=== PATIENT | female | born 1980 | race Caucasian/White ===

== ENCOUNTER → 2019-05-03 | Outpatient (CLI) | payer BC ==
[2019-05-03 11:26] LABS: FOLLICLE STIMULATING HORMONE 8.7 mIU/mL; HCG, SERUM QUANTITATIVE < 1.0 MIU/ML; LUTEINIZING HORMONE 5.5 mIU/mL; PROGESTERONE 0.81 NG/ML
--- NOTE | 2019-05-03 11:45 | REP ---
Pelvic sonography: History: Ovarian dysfunction. Follicle study. Findings: Uterine dimensions are 8.7 x 3.7 x 5.1 cm. Endometrial echo is 1.1 cm thick. Endometrial echo is complex with some fluid in the fundal endometrium. Question endometrial polyp. No free fluid in the cul-de-sac. The right ovary's dimensions are 3.0 x 2.1 x 2.1 cm. There are two follicles in the right ovary measuring greater than a centimeter as follows: 1.6 x 1.4 and 1.1 x 1.0 cm. In addition, there are three follicles in the right ovary between 0.6 and 0.8 cm in greatest diameter. The overall dimensions of the left ovary are 3.5 x 1.7 x 1.8 cm. There are two follicles in the left ovary greater than a centimeter measured as follows: 1.2 x 1.1 and 1.3 x 1.2 cm. In addition, there are five follicles in the left ovary ranging in size from 0.5 to 0.7 cm. Doppler flow is normal both ovaries. Resistive indices are 0.58 on the right and 0.69 on the left. Impression: Ovarian follicle study as above. Complex somewhat nodular endometrial echo question endometrial polyp. Electronically Signed by Harvey Cooley MD 05/03/2019 01:00 P
== END ==
LOC: M RAD 08:36
PROVIDERS: ATTEND Obstetrics & Gynecology Reproductive Endocrinology
DX: N97.9 Female infertility, unspecified (principal)

== ENCOUNTER → 2019-05-08 | Outpatient (CLI) | payer BC ==
--- NOTE | 2019-05-08 10:03 | REP ---
TRANSVAGINAL PELVIC ULTRASOUND FOLLICLE STUDY: Real-time sonographic evaluation of the pelvis was performed utilizing transvaginal technique. The uterus measures 8.9 x 3.5 x 4.8 cm. Endometrial thickness is 9 mm. The right ovary measures 4.0 x 2.7 x 3.8 cm. Four dominant follicles are seen greater than 1 cm in maximum diameter. The largest measures 13 x 15 mm. There are a few other subcentimeter follicles seen in the right ovary. The left ovary measures 4.0 x 3.4 x 2.9 cm. There are four dominant follicles seen which are greater than 1 cm in diameter. The largest is 20 x 16 mm. There are a couple of other subcentimeter follicles. Electronically Signed by Camilo Vega MD 05/08/2019 11:26 P
[2019-05-08 11:09] LABS: ESTRADIOL 576.4 PG/ML; LUTEINIZING HORMONE 14.2 mIU/mL; PROGESTERONE 1.32 NG/ML
== END ==
LOC: M RAD 09:06
PROVIDERS: ATTEND Obstetrics & Gynecology Reproductive Endocrinology
DX: E28.9 Ovarian dysfunction, unspecified (principal)

== ENCOUNTER → 2019-05-10 | Outpatient (CLI) | payer BC ==
--- NOTE | 2019-05-10 10:29 | REP ---
TRANSVAGINAL PELVIC ULTRASOUND FOLLICLE STUDY: Transvaginal pelvic ultrasound performed. Uterus measures 8.6 x 3.9 x 4.7 cm. Endometrial thickness is 10.0 mm. Nabothian cyst is seen in the region of the cervix. There is no free fluid. Right ovary measures 5.1 x 3.3 x 4.4 cm. There are 10 dominant follicles greater than 1 cm in maximum diameter. The largest measures 18.0 x 16.0 mm. Several subcentimeter follicles are also seen in the right ovary. Left ovary measures 3.8 x 2.8 x 3.4 cm. There are approximately 16 follicles 1 cm or greater within the left ovary. Largest measures 23.0 x 17.0 mm. There are a few other subcentimeter follicles in the left ovary. Electronically Signed by Camilo Vega MD 05/10/2019 06:21 P
[2019-05-10 10:46] LABS: LUTEINIZING HORMONE 2.1 mIU/mL; PROGESTERONE 1.73 NG/ML
== END ==
LOC: M RAD 08:58
PROVIDERS: ATTEND Obstetrics & Gynecology Reproductive Endocrinology
DX: N97.9 Female infertility, unspecified (principal)

== ENCOUNTER → 2019-05-23 | Outpatient (CLI) | payer BC ==
[2019-05-23 10:43] LABS: THYROID STIMULATING HORMONE 1.83 uIU/ML (0.358-3.740)
[2019-05-23 10:45] LABS: PROGESTERONE 47.79 NG/ML
[2019-05-23 10:46] LABS: ESTRADIOL 200.8 PG/ML
== END ==
LOC: M LAB 09:15
PROVIDERS: ATTEND Obstetrics & Gynecology Reproductive Endocrinology
DX: E28.9 Ovarian dysfunction, unspecified (principal)

== ENCOUNTER → 2019-05-29 | Outpatient (CLI) | payer BC ==
[2019-05-29 12:44] LABS: PROGESTERONE 82.04 NG/ML
== END ==
LOC: M LAB 09:05
PROVIDERS: ATTEND Obstetrics & Gynecology Reproductive Endocrinology
DX: E28.9 Ovarian dysfunction, unspecified (principal)

== ENCOUNTER → 2019-05-31 | Outpatient (CLI) | payer BC ==
[2019-05-31 10:33] LABS: THYROID STIMULATING HORMONE 1.54 uIU/ML (0.358-3.740)
[2019-05-31 10:39] LABS: ESTRADIOL 533.6 PG/ML
[2019-05-31 10:59] LABS: PROGESTERONE 80.05 NG/ML
== END ==
LOC: M LAB 09:17
PROVIDERS: ATTEND Obstetrics & Gynecology Reproductive Endocrinology
DX: Z32.01 Encounter for pregnancy test, result positive (principal)

== ENCOUNTER → 2019-06-07 | Outpatient (CLI) | payer BC ==
--- NOTE | 2019-06-07 09:06 | REP ---
FIRST TRIMESTER OBSTETRIC SONOGRAPHY: HISTORY: , history of infertility. FINDINGS: Transvaginal sonography confirms the presence of a gestational sac in the fundal endometrium with mean sac size diameter of 10.7 mm. This corresponds with a gestational age estimate 5-week 6 days. No embryonic pole is visible within the sac at this time. I cannot resolve a yolk sac. There is no free fluid in the cul-de-sac. Normal ovaries are seen bilaterally. Right ovary dimensions are 3.1 x 1.6 x 2.6 cm. Left ovary measures 3.0 x 1.8 x 3.0 cm. IMPRESSION: Gestational sac in the fundal endometrium, 5-week 6 days by mean sac size diameter. No embryonic pole or yolk sac is visualized. No other finding. Electronically Signed by Harvey Cooley MD 06/07/2019 10:23 A
[2019-06-07 10:00] LABS: ESTRADIOL 660.2 PG/ML; PROGESTERONE 84.57 NG/ML; THYROID STIMULATING HORMONE 1.74 uIU/ML (0.358-3.740)
== END ==
LOC: M RAD 07:44
PROVIDERS: ATTEND Obstetrics & Gynecology Reproductive Endocrinology
DX: O09.00 Supervision of pregnancy with history of infertility, unspecified trimester (principal); Z3A.01 Less than 8 weeks gestation of pregnancy

== ENCOUNTER → 2019-06-14 | Outpatient (CLI) | payer BC ==
--- NOTE | 2019-06-14 08:46 | REP ---
Emergency first trimester obstetric sonography: History: Supervision of . No comparison study. Findings: Transabdominal and transvaginal scanning demonstrates a diamniotic dichorionic twin gestation. Twin A has a small irregular sac. There is a 3 mm embryonic pole within twin A's gestational sac demonstrating no cardiac motion. 3 mm crown-rump length would correspond with a 2-rtif-8-day gestational age estimate. In the gestational sac for twin B, there is a living embryonic pole with a crown-rump length of 9 mm. This corresponds to a gestational age estimate of 6 weeks and six days. heart rate is documented at 120 beats per minute. No other complication is identified. Impression: Twin gestation. Small irregular sac for twin A with no heart motion and a smaller embryonic pole. viability is not confirmed for twin A. Twin B is a living intrauterine gestation at 6 weeks 6 days by crown-rump length. ELISA by sonography February 01, 2020. Electronically Signed by Harvey Cooley MD 06/14/2019 08:38 A
[2019-06-14 10:09] LABS: ESTRADIOL 514.8 PG/ML; PROGESTERONE 51.93 NG/ML; THYROID STIMULATING HORMONE 1.71 uIU/ML (0.358-3.740)
== END ==
LOC: M RAD 07:23
PROVIDERS: ATTEND Obstetrics & Gynecology Reproductive Endocrinology
DX: Z36.9 Encounter for antenatal screening, unspecified (principal); O09.00 Supervision of pregnancy with history of infertility, unspecified trimester; O30.041 Twin pregnancy, dichorionic/diamniotic, first trimester; Z3A.01 Less than 8 weeks gestation of pregnancy

== ENCOUNTER → 2019-06-21 | Outpatient (CLI) | payer BC ==
--- NOTE | 2019-06-21 09:59 | REP ---
TRANSVAGINAL PELVIC ULTRASOUND: Transvaginal pelvic ultrasound performed. A single living intrauterine gestation is seen. Estimated gestational age is 7 weeks 2 days based on crown-rump length of 11 mm. Yolk sac is seen within the gestational sac as well. heart rate is 160 beats per minute. Subchorionic hemorrhage is seen measuring 2.6 x 1.0 x 3.2 cm. Previously noted second gestational sac and pole is not visualized today. Electronically Signed by Camilo Vega MD 06/21/2019 03:48 P
[2019-06-21 10:36] LABS: ESTRADIOL 545.6 PG/ML; THYROID STIMULATING HORMONE 0.914 uIU/ML (0.358-3.740)
[2019-06-21 12:24] LABS: PROGESTERONE 58.42 NG/ML
== END ==
LOC: M RAD 08:50
PROVIDERS: ATTEND Obstetrics & Gynecology Reproductive Endocrinology
DX: O09.00 Supervision of pregnancy with history of infertility, unspecified trimester (principal); Z3A.01 Less than 8 weeks gestation of pregnancy

== ENCOUNTER → 2019-06-28 | Outpatient (CLI) | payer BC ==
--- NOTE | 2019-06-28 12:51 | REP ---
FIRST TRIMESTER ULTRASOUND: Real-time sonographic evaluation of the gravid uterus performed utilizing transvaginal technique. There is a single living intrauterine gestation with an estimated gestational age 8 weeks 4 days based on crown-rump length of 20 mm, EDC 02/03/2020. heart rate 170 beats per minute. Subchorionic hemorrhage measures 3.6 x 2.8 x 3.4 cm. No maternal adnexal region abnormalities are seen. Electronically Signed by Camilo Vega MD 06/28/2019 12:53 P
[2019-06-28 13:53] LABS: THYROID STIMULATING HORMONE 0.717 uIU/ML (0.358-3.740)
[2019-06-28 13:55] LABS: ESTRADIOL 667.6 PG/ML; PROGESTERONE 56.31 NG/ML
== END ==
LOC: M RAD 11:52
PROVIDERS: ATTEND Obstetrics & Gynecology Reproductive Endocrinology
DX: Z32.01 Encounter for pregnancy test, result positive (principal); O09.00 Supervision of pregnancy with history of infertility, unspecified trimester; Z3A.08 8 weeks gestation of pregnancy

== ENCOUNTER → 2019-07-05 | Outpatient (CLI) | payer BC, SELFPAY ==
--- NOTE | 2019-07-05 08:40 | REP ---
Clinical: Dating and viability. Technique: Transvaginal first trimester obstetrical ultrasound with color Doppler evaluation. Findings: Single live early intrauterine is appreciated. Gestational sac with yolk sac and pole identified. [place]-rump length of 2.8 cm corresponds to 9 weeks 4 days gestational age with estimated date of delivery 02/03/2020 . heart rate equals 165 beats per minute. A small subchorionic hemorrhage is identified to the right of the gestational sac measuring 22 x 12 x 14 mm and decreased in size from prior examination. Impression: 1. Single live early intrauterine at 9 weeks 4 days gestational age. Complete anatomical assessment should be performed and 19-20 weeks. 2. Small subchorionic hemorrhage again identified and decreased in size. Electronically Signed by Wade Dillard MD 07/05/2019 08:32 A
[2019-07-05 08:52] LABS: THYROID STIMULATING HORMONE 1.44 uIU/ML (0.358-3.740)
[2019-07-05 09:38] LABS: ESTRADIOL 617.6 PG/ML; PROGESTERONE 57.96 NG/ML
== END ==
LOC: M RAD 07:09
PROVIDERS: ATTEND Obstetrics & Gynecology Reproductive Endocrinology
DX: O09.00 Supervision of pregnancy with history of infertility, unspecified trimester (principal); Z3A.09 9 weeks gestation of pregnancy

== ENCOUNTER → 2019-07-12 | Outpatient (CLI) | payer BC ==
[2019-07-12 10:38] LABS: HEMATOCRIT 41.2 % (36.0-47.0); HEMOGLOBIN 13.3 g/dl (12.0-15.5); MEAN CORPUSCULAR HEMOGLOBIN 30.4 pg (27.0-33.0); MEAN CORPUSCULAR HGB CONC 32.3 g/dl (32.0-36.5); MEAN CORPUSCULAR VOLUME 94.1 fl (80.0-96.0); PLATELET COUNT, AUTOMATED 273 10^3/uL (150-450); RED BLOOD COUNT 4.38 10^6/uL (4.00-5.40); WHITE BLOOD COUNT 6.1 10^3/uL (4.0-10.0)
--- NOTE | 2019-07-12 11:32 | REP ---
FIRST TRIMESTER ULTRASOUND: Real-time sonographic evaluation of the gravid uterus performed utilizing transabdominal technique. There is a single living intrauterine gestation with an estimated gestational age 10 weeks 6 days, EDC 02/01/2020. heart rate is 170 beats per minute. There is no subchorionic hemorrhage. Previously noted subchorionic hemorrhage is no longer visualized. Placenta is anterior. There is no definite placenta previa. Unreviewed
== END ==
LOC: M RAD 09:40
PROVIDERS: ATTEND Obstetrics & Gynecology Reproductive Endocrinology
DX: O09.00 Supervision of pregnancy with history of infertility, unspecified trimester (principal); Z3A.10 10 weeks gestation of pregnancy

== ENCOUNTER → 2019-08-03 | Outpatient (CLI) | payer MEDICAID ==
[2019-08-03 13:10] LABS: BASO % 0.3 % (0.0-1.0); EOS # 0.1 10^3/uL (0.0-0.5); EOS % 0.8 % (0.0-3.0); HEMATOCRIT 43.7 % (36.0-47.0); HEMOGLOBIN 14.1 g/dl (12.0-15.5); LYMPH % 11.6 % (24.0-44.0); MEAN CORPUSCULAR HEMOGLOBIN 31.2 pg (27.0-33.0); MEAN CORPUSCULAR HGB CONC 32.3 g/dl (32.0-36.5); MEAN CORPUSCULAR VOLUME 96.7 fl (80.0-96.0); MONO # 0.5 10^3/uL (0.0-0.8); MONO % 5.5 % (0.0-5.0); NEUTROPHILS % 81.6 % (36.0-66.0); PLATELET COUNT, AUTOMATED 288 10^3/uL (150-450); RED BLOOD COUNT 4.52 10^6/uL (4.00-5.40); WHITE BLOOD COUNT 8.6 10^3/uL (4.0-10.0)
[2019-08-03 14:07] LABS: FREE T4 1.07 NG/DL (0.76-1.46)
[2019-08-04 09:52] LABS: RUBELLA IgG QUALITATIVE IMMUNE (IMMUNE)
[2019-08-04 10:20] LABS: HEPATITIS C VIRUS ABY INDEX 0.2 INDEX (<0.8)
[2019-08-04 10:21] LABS: HIV 1&2 SCREEN CENTAUR NEGATIVE (NEGATIVE)
== END ==
LOC: M PLALAB 11:25
PROVIDERS: ATTEND Advanced Practice Midwife
DX: O09.512 Supervision of elderly primigravida, second trimester (principal)

== ENCOUNTER → 2019-08-04 | Outpatient (CLI) | payer MEDICAID ==
[2019-08-04 16:06] LABS: CHLAMYDIA DNA AMPLIFICATION NEGATIVE (NEGATIVE); GC DNA AMPLIFICATION NEGATIVE (NEGATIVE)
== END ==
LOC: M PLALAB 09:13
PROVIDERS: ATTEND Advanced Practice Midwife
DX: O09.519 Supervision of elderly primigravida, unspecified trimester (principal)

== ENCOUNTER → 2019-09-13 | Outpatient (CLI) | payer OTHER ==
--- NOTE | 2019-09-13 10:31 | REP ---
Clinical: Anatomical evaluation. Comparison: 07/12/2019 . Findings: Examination demonstrates a single live intrauterine in variable presentation. motion is identified by technologist. Placenta is noted anterior and grade I without evidence for placenta previa or abruption. Amniotic fluid volume is normal. Cervix measures 3.4 cm in length and appears closed. No evidence for nuchal cord. Gestational age by current measurements 19 weeks 4 days with ELISA 02/03/2020 . FHR equals 153 beats per minute. BPD 4.5 cm 19 weeks 4 days HC 16.8 cm 19 weeks 3 days AC 15.4 cm 20 weeks 4 days FL 3.1 cm 19 weeks 4 days HL 3.1 cm 20 weeks 2 days HC/AC ratio 1.09 Estimated weight 329 grams ( 64th percentile). Anatomical assessment demonstrates normal structures including cranium, choroid plexus, cavum, cerebellum/posterior fossa, facial features, lungs, four-chamber heart/ventricular outflow tracts, diaphragm, stomach, cord insertion/three-vessel cord, kidneys/bladder, spine, and extremities. Impression: Single live intrauterine in variable presentation. Anatomical assessment is complete and normal.
== END ==
LOC: M WHC 08:08
PROVIDERS: ATTEND Advanced Practice Midwife
DX: O09.812 Supervision of pregnancy resulting from assisted reproductive technology, second trimester (principal); Z3A.19 19 weeks gestation of pregnancy

== ENCOUNTER → 2019-11-02 | Outpatient (REF) | payer OTHER ==
[2019-11-02 13:48] LABS: HEMATOCRIT 35.8 % (36.0-47.0); HEMOGLOBIN 12.3 g/dl (12.0-15.5); MEAN CORPUSCULAR HEMOGLOBIN 33.6 pg (27.0-33.0); MEAN CORPUSCULAR HGB CONC 34.4 g/dl (32.0-36.5); MEAN CORPUSCULAR VOLUME 97.8 fl (80.0-96.0); PLATELET COUNT, AUTOMATED 242 10^3/uL (150-450); RED BLOOD COUNT 3.66 10^6/uL (4.00-5.40); WHITE BLOOD COUNT 10.1 10^3/uL (4.0-10.0)
== END ==
LOC: M PLALAB 10:45
PROVIDERS: ATTEND Advanced Practice Midwife
DX: O09.519 Supervision of elderly primigravida, unspecified trimester (principal); Z3A.00 Weeks of gestation of pregnancy not specified

== ENCOUNTER → 2020-01-11 | Outpatient (REF) | payer OTHER | LOC: M PLALAB 10:45 | PROVIDERS: ATTEND Advanced Practice Midwife | DX: O09.513 Supervision of elderly primigravida, third trimester (principal) ==

== ENCOUNTER 2020-02-02 11:22 | Inpatient (IN) | payer OTHER ==
[~2020-02-02] VITALS: Ht 185.4 cm; Wt 118.6 kg
[2020-02-02] VITALS (8 sets, daily range): BP systolic 116–125; BP diastolic 56–64
[2020-02-02] MEDS ORDERED: PRENTAB9 PO (11:45)
[2020-02-02] MEDS ORDERED: LACTATED RINGER'S 1000 ML IV STA (12:02)
[2020-02-02] MEDS: miSOPROStol 50 MCG 1/2 TAB (S0191) PO SCH ×3 (12:27→20:33)
[2020-02-02 12:32] LABS: HEMATOCRIT 36.6 % (36.0-47.0); HEMOGLOBIN 12.4 g/dl (12.0-15.5); MEAN CORPUSCULAR HEMOGLOBIN 31.5 pg (27.0-33.0); MEAN CORPUSCULAR HGB CONC 33.9 g/dl (32.0-36.5); MEAN CORPUSCULAR VOLUME 92.9 fl (80.0-96.0); PLATELET COUNT, AUTOMATED 240 10^3/uL (150-450); RED BLOOD COUNT 3.94 10^6/uL (4.00-5.40); WHITE BLOOD COUNT 9.2 10^3/uL (4.0-10.0)
--- NOTE | 2020-02-02 13:37 | HPEPDOC ---
Obstetrical History & Physical General Date of Admission Feb 02, 2020 at 11:22 History of Present Illness Chief Complaint: Induction of labor (AMA at term) Information Provided By: Patient Age: 39 : 1 Term: 0 Pre-term: 0 Abortions: 0 Livin Care Care: Good Care Dating Final EDC: Feb 03, 2020 Final EDC by: 1st trimester (US) EGA at Admission: 39 (+6) Antepartum Course Admission Weight (lbs.): 259 Past Medical History Past Obstetrical History : Past Obstetrical History: Primgravida (Embryo transfer by Dr Cross) [employer] History: Other (infertility) Past Medical History Medical History Migraines Family History Significant Family History: Cancer, Other (hyperthyroidism) Social History Marital Status: Family situation: Spouse/partner home Psychosocial History: No pertinent psych hx * Smoker: former Smoker Alcohol: Denies Drugs: denies Abuse Violence Screening Have you been hit/kicked/slapp: No Have you been sexually assault: No Imunizations Tdap status: current Allergies Coded Allergies: No Known Allergies (Unverified , 02/02/20) Medications Scheduled No.137/Iron/Folic Acd ( Vitamin Tablet) 1 Each Tablet, 1 TAB PO DAILY Physical Examination Physical Examination GENERAL: Alert and oriented times three. BREAST: . ABDOMEN: Gravid and non-tender to touch. FETUS: Is vertex (VTX) by sterile vaginal examination (SVE), fetus is vertex (VTX) by Andrew. EFW 8# HEART RATE: Regular rate and rhythm. LUNGS: Clear to auscultation (CTA). EXTREMITIES: No edema. No clonus. Deep tendon reflexes (DTRs) + 2. Vital Signs/I&O Vital Signs Date Time Temp Pulse Resp B/P (MAP) Pulse Ox O2 Delivery O2 Flow Rate FiO2 02/02/20 11:44 98.1 90 18 121/63 (82) 97 Laboratory Data 24H LABS Laboratory Tests 2 02/02/20 11:43: Serology Scanned Report Hepatitis B Testing 02/02/20 12:16: Nucleated Red Blood Cells % (auto) 0.0 02/02/20 12:17: CBC/BMP Laboratory Tests 02/02/20 12:16 Pertinent Laboratoy Data Blood Type: A+ RBC Antibody Screen: Negative HIV: Negative Hepatitis B: Negative Hepatitis C: Negative Rapid Plasma Reagin: Nonreactive Rubella: Immune Chlamydia/Gonorrhea: Negative Group B Streptococcus: Negative Quad Screen Test: Declined Glucose Tolerance Test: 92 Diag/Inter Therapy Panorama low risk female Anatomy Ultrasound Ultrasound Date: Sep 13, 2019 Placenta Location: Anterior Normal Anatomy: Yes Placenta Previa: No Estimated Weight (grams): 326 (64%) Other Ultrasounds 06/14/2019 F/U Di/di twin gestation. Twin A small irregular sac, EGA 6w0d, no FH. Twin B pole 6w6d + FH. ELISA 02/01/2020 06/21/2019 [facility] 7w2d, FH. 2nd GS and pole no longer identified. Subchorionic hemorrhage 2.6x1.0x3.2cm 06/28/2019 [facility] 8w4d ELISA 02/03/2020. FH 170. Subchorionic hemorrhage 3.6x2.8x3.4cm 07/05/2020 [facility] 9w4d, FH 165. Subchorionic hemorrhage decreased in size, [id number] 07/12/2019 [facility] 10w6d ELISA 02/01/2020. FH 170. Subchorionic hemorrhage not visualized. No previa Steroid Therapy Steroid Therapy: No Vaginal Examination Dilation: Fingertip Effacement: 50% Station: -3 Cervical Consistency: Soft Cervical Position: Posterior Presentation: Cephalic presentation Assessment Heart Rate (FHR): 150 Variability: Moderate Accelerations: Positive Decelerations: None Tocometer Contractions: Yes Frequency: irregular Strength: palpated as mild (not perceived by patient) Assessment/Plan Assessment Arin is a 39-year-old (G)1 para (P)0-0-0-0 at 39+6 weeks by 6-week ultrasound. Presents to Labor and Delivery (L&D) for induction of labor at term due to advanced maternal age. Denies LOF, bleeding or regular UC. Reports good movement. Plan Admit and orient per consult Dr Lewis Shade Classifier and consent. Diet: Regular. Group B Streptococcus (GBS) negative. Labs and intravenous (IV) per unit protocol. Counseled on misoprotol, Pitocin and induction of labor (IOL). Lactated Ringers (LR): Bolus 500 mL, then saline lock. Plans epidural for labor coping Anticipate normal spontaneous delivery (). C-S as appropriate. Vianney Guzman CNM Feb 02, 2020 13:21
[2020-02-02] MEDS: hydrOXYzine 50 MG TAB PO SCH (22:45)
[2020-02-03] VITALS (32 sets, daily range): BP systolic 107–130; BP diastolic 52–73
[2020-02-03] MEDS: miSOPROStol 50 MCG 1/2 TAB (S0191) PO SCH ×2 (00:35→05:00)
[2020-02-03] MEDS ORDERED: OXYTOCIN DRIP 30 UNITS in IV 1 EA IV SCH (10:15)
[2020-02-03] MEDS: LR 1,000 ML IV SCH (12:41)
[2020-02-03] MEDS: hydrOXYzine 50 MG TAB PO SCH (21:00)
[2020-02-03] MEDS ORDERED: FENTANYL 2MCG/ML ROPIVACAINE 0.2% IN 0.9% NACL 100ML IVBAG As Ordered ONE (23:10)
[2020-02-04] VITALS (104 sets, daily range): BP systolic 86–145; BP diastolic 45–83
[2020-02-04] MEDS ORDERED: REFRIGERATOR IV KEYS XX PRN (00:15)
[2020-02-04] MEDS ORDERED: ONDANSETRON 4MG/2ML VIAL IV PRN ×4 (00:15→23:45)
[2020-02-04] MEDS ORDERED: EPIDURAL COMMENT XX SCH (00:15)
[2020-02-04] MEDS ORDERED: EPIDURAL/PCA KEYS XX PRN (00:15)
[2020-02-04] MEDS: FENTANYL/ROPIVACAINE/NACL BAG 100 ML EPIDURAL SCH ×3 (00:15→15:02)
[2020-02-04] MEDS ORDERED: ePHEDrine SULFATE 25 MG/5 ML(5MG/ML) SYRINGE IV PRN (00:15)
[2020-02-04] MEDS ORDERED: NALOXONE INJ 0.4MG/1ML VIAL (J2310 PER 1MG) IV PRN ×3 (00:15→23:10)
[2020-02-04] MEDS ORDERED: diphenhydrAMINE 50MG/ML VIAL (J1200) IV PRN ×2 (00:15→23:10)
[2020-02-04] MEDS ORDERED: LACTATED RINGER'S 1000 ML IV PRN (00:15)
[2020-02-04] MEDS: LR 1,000 ML IV SCH ×4 (06:46→15:15)
[2020-02-04] MEDS ORDERED: FENTANYL 2MCG/ML ROPIVACAINE 0.2% IN 0.9% NACL 100ML IVBAG As Ordered ONE ×2 (07:19→15:00)
[2020-02-04] MEDS ORDERED: ACETAMINOPHEN 500 MG TAB PO ONE (20:15)
[2020-02-04] MEDS ORDERED: LIDOCAINE 2% W/EPINEPHRINE 20ML VIAL **PRES FREE As Ordered ONE ×2 (20:31→22:19)
[2020-02-04] MEDS ORDERED: OXYTOCIN INJ 10 UNITS/ML VIAL (J2590) As Ordered ONE ×2 (22:14→22:15)
[2020-02-04] MEDS ORDERED: ceFAZolin SOD 2 GM in IV 1 EA IV ONE (22:15)
[2020-02-04] MEDS ORDERED: BICITRA 30ML SOLN UDC PO ONE (22:15)
[2020-02-04] MEDS ORDERED: AZITHROMYCIN INJ 500 MG, VIAL MATE ADAPTER 1 EACH in D5W 250 ML IV ONE (22:15)
[2020-02-04] MEDS ORDERED: MORPHINE PRES-FREE INJ 10 MG/10 ML VIAL (J2274) As Ordered ONE (22:16)
[2020-02-04] MEDS ORDERED: ONDANSETRON 4MG/2ML VIAL As Ordered ONE (22:16)
[2020-02-04] MEDS ORDERED: OXYC1TAB23 PO (22:29)
[2020-02-04] MEDS ORDERED: propofoL 200 MG/20 ML VIAL As Ordered ONE (22:54)
[2020-02-04] MEDS ORDERED: KETAMINE HCL 200 MG/20 ML VIAL As Ordered ONE (22:55)
[2020-02-04] MEDS ORDERED: NALBUPHINE HCL 10 MG/ML AMP (J2300) IV PRN ×2 (23:10→23:45)
[2020-02-04] MEDS ORDERED: METOCLOPRAMIDE INJ 10MG/2ML VIAL (J2765 PER 1) IV PRN (23:10)
[2020-02-04] MEDS ORDERED: ACETAMINOPHEN 1000MG 100ML IV BTL (OFIRMEV) (J0131 PER 10MG) As Ordered ONE (23:11)
[2020-02-04] MEDS ORDERED: MEPERIDINE 50 MG/ML 1ML VIAL (J2175) As Ordered ONE (23:18)
[2020-02-04] MEDS ORDERED: OXYTOCIN DRIP 30 UNITS in IV 1 EA IV SCH (23:26)
[2020-02-04] MEDS ORDERED: DOCUSATE SODIUM 100 MG CAP PO PRN (23:30)
[2020-02-04] MEDS ORDERED: RHOGAM 300 MCG (1500 IU) INJ (J2790) IM SCH (23:30)
[2020-02-04] MEDS ORDERED: PERCOCET 5MG/325MG TAB PO PRN ×2 (23:30)
[2020-02-04] MEDS ORDERED: MEASLES,MUMPS,RUBELLA VACCINE INJ (MMR-II) (90707) SC SCH (23:30)
[2020-02-04] MEDS ORDERED: LR 1,000 ML IV SCH (23:45)
[2020-02-04] MEDS ORDERED: fentaNYL 100 MCG/2 ML INJECTION (J3010) IV PRN (23:45)
[2020-02-04] MEDS ORDERED: KETOROLAC 30 MG/ML 1ML VIAL IV PRN (23:45)
[2020-02-05] VITALS (10 sets, daily range): BP systolic 94–117; BP diastolic 46–56
[2020-02-05] MEDS ORDERED: KETOROLAC 30 MG/ML 1ML VIAL IV SCH
[2020-02-05] MEDS: LR 1,000 ML IV SCH ×3 (01:29→15:26)
[2020-02-05] MEDS: KETOROLAC 30 MG/ML 1ML VIAL IV SCH ×3 (01:43→14:51)
[2020-02-05] MEDS: PRENATAL VITAMINS CHEWABLE TABLET PO SCH (07:41)
[2020-02-05 08:38] LABS: HEMATOCRIT 30.3 % (36.0-47.0); HEMOGLOBIN 9.9 g/dl (12.0-15.5); MEAN CORPUSCULAR HEMOGLOBIN 31.2 pg (27.0-33.0); MEAN CORPUSCULAR HGB CONC 32.7 g/dl (32.0-36.5); MEAN CORPUSCULAR VOLUME 95.6 fl (80.0-96.0); PLATELET COUNT, AUTOMATED 201 10^3/uL (150-450); RED BLOOD COUNT 3.17 10^6/uL (4.00-5.40); WHITE BLOOD COUNT 24.9 10^3/uL (4.0-10.0)
[2020-02-05] MEDS: IBUPROFEN 800 MG TAB PO SCH (22:25)
[2020-02-06 02:00] VITALS: BP 106/59
[2020-02-06] MEDS: IBUPROFEN 800 MG TAB PO SCH ×2 (05:51→14:46)
[2020-02-06 06:00] VITALS: BP 111/53
[2020-02-06] MEDS: PRENATAL VITAMINS CHEWABLE TABLET PO SCH (08:09)
[2020-02-06] MEDS ORDERED: IBUP80TA PO (10:32)
--- NOTE | 2020-02-12 13:53 | RO ---
DATE OF PROCEDURE: 02/04/2020 PREPROCEDURE DIAGNOSIS: 39 weeks, arrest of dilation. POSTPROCEDURE DIAGNOSIS: 39 weeks, arrest of dilation. PROCEDURE: Primary low transverse section. SURGEON: Palmer Lewis MD PIPE STEM SAWYER: Nikki Bustillo MD ANESTHESIA: Epidural. ESTIMATED BLOOD LOSS: 600 mL. URINE OUTPUT: 100 mL. IV FLUID: 600 mL lactated Ringers (LR). FINDINGS: 4328 gram, 9 pound 8 ounce, female , Apgars 8 and 9, light meconium stained fluid. Normal uterus, fallopian tubes and ovaries. DESCRIPTION OF PROCEDURE: The patient was taken to the operating room where epidural anesthesia was adequate. A Hatch catheter was in place. She was prepped and draped in sterile fashion in the supine position. A Pfannenstiel skin incision was made with the scalpel and carried through to the fascia. The fascia was nicked and extended and the fascia dissected off the rectus muscles. The peritoneal cavity was entered. A bladder flap was created. A Mobius retractor was placed. A curvilinear incision made in the lower uterine segment until light meconium stained fluid was noted. This was extended manually. The was delivered from the vertex position without difficulty. The cord was doubly clamped and cut. The infant was handed off to the awaiting nurses. The placenta was expressed. The uterus was closed with #0 Vicryl in a running locked fashion. A second imbricating layer of #0 Vicryl was placed. The Mobius retractor was removed. The peritoneum was closed with #2-0 Vicryl in a running fashion. The fascia was closed with #0 Vicryl in a running fashion. The deep layer was irrigated and closed with #2-0 chromic. The skin was closed with #4-0 Monocryl subcuticular sutures. Sponge, instrument and needle counts were correct.
--- NOTE | 2020-02-14 19:13 | DSES ---
DATE OF ADMISSION: 02/02/2020 DATE OF DISCHARGE: 02/06/2020 A 39-year-old (G) 1 at 39 and 6/7 weeks gestation who presents for induction. She had no complications. HOSPITAL COURSE: The patient was admitted on 02/02/2020. She had induction initiated with misoprostol. She received a total of five doses of misoprostol. She then had a cervical catheter placed followed by pitocin. She was eventually diagnosed with arrest of dilation. On 02/04/2020, the patient underwent primary section for a 9-pound, 8-ounce . There were no complications. Her postoperative course was unremarkable. She had adequate return of bladder and bowel function. Her postoperative hemoglobin was 9.9 grams/dL. She was deemed stable for discharge on postoperative day number two. ADMISSION DIAGNOSIS: , term. DISCHARGE DIAGNOSIS: Delivered. PROCEDURE: Primary section. DISPOSITION: The patient will followup with Dr. Lewis in two weeks. Instructions reviewed.
== END 2020-02-06 17:40 | disposition home or self-care (01) | DRG 540 ==
LOC: M LDI 11:22 → M OBS 02-05 01:07
PROVIDERS: ADMIT Advanced Practice Midwife; ATTEND Advanced Practice Midwife
PROC: 10D00Z1 Extraction of Products of Conception, Low, Open Approach (ICD-10-PCS; principal; 2020-02-04 23:47)
DX: O62.0 Primary inadequate contractions (principal); O77.0 Labor and delivery complicated by meconium in amniotic fluid; Z3A.39 39 weeks gestation of pregnancy; Z37.0 Single live birth

== ENCOUNTER 2020-02-14 11:39 | Emergency (ER) | payer OTHER ==
[~2020-02-14] VITALS: Ht 185.4 cm; Wt 105.2 kg
[~2020-02-14 11:39] MED LIST: IBUP80TA PO; OXYC1TAB23 PO; PRENTAB9 PO
[2020-02-14] MEDS ORDERED: BENA25CA4 PO (11:44)
[2020-02-14 12:44] LABS: HEMATOCRIT 43.7 % (36.0-47.0); MEAN CORPUSCULAR HEMOGLOBIN 30.5 pg (27.0-33.0); MEAN CORPUSCULAR VOLUME 95.2 fl (80.0-96.0); PLATELET COUNT, AUTOMATED 378 10^3/uL (150-450); RED BLOOD COUNT 4.59 10^6/uL (4.00-5.40); WHITE BLOOD COUNT 8.2 10^3/uL (4.0-10.0)
[2020-02-14 13:11] LABS: ERYTHROCYTE SEDIMENTATION RATE 48 mm/hr (0-20)
[2020-02-14 13:15] LABS: ALBUMIN 3.3 GM/DL (3.2-5.2); ALT/SGPT 22 U/L (12-78); BILIRUBIN,DIRECT 0.1 MG/DL (0.0-0.2); BILIRUBIN,TOTAL 0.5 MG/DL (0.2-1.0); BLOOD UREA NITROGEN 16 MG/DL (7-18); C REACTIVE PROTEIN QUANTITATIV 1.16 MG/DL (0.00-0.30); CALCIUM LEVEL 9.1 MG/DL (8.5-10.1); CARBON DIOXIDE LEVEL 28 MEQ/L (21-32); CHLORIDE LEVEL 108 MEQ/L (98-107); CREATININE FOR GFR 0.78 MG/DL (0.55-1.30); GLOMERULAR FILTRATION RATE > 60.0 (>60); GLUCOSE, FASTING 73 MG/DL (70-100); POTASSIUM SERUM 4.8 MEQ/L (3.5-5.1); SODIUM LEVEL 142 MEQ/L (136-145); TOTAL PROTEIN 7.7 GM/DL (6.4-8.2)
[2020-02-14] MEDS ORDERED: LORA-622 PO (14:41)
[2020-02-14] MEDS ORDERED: AUGM875T28 PO (14:41)
[2020-02-14] MEDS ORDERED: TRIA1CR80 TOP (14:41)
[2020-02-14 14:46] VITALS: BP 121/69
== END 2020-02-14 14:47 | disposition home or self-care (01) ==
LOC: M ED 11:39
DX: O26.86 Pruritic urticarial papules and plaques of pregnancy (PUPPP) (principal); O86.20 Urinary tract infection following delivery, unspecified

== ENCOUNTER → 2020-08-12 | Outpatient (CLI) | payer OTHER ==
[~2020-08-12] MED LIST changes: +AUGM875T28 PO; +BENA25CA4 PO; +LORA-622 PO; +TRIA1CR80 TOP
--- NOTE | 2020-08-12 08:28 | REP ---
INDICATION: INFERTILITY LABS 1ST US 2ND COMPARISON: None. TECHNIQUE: Transvaginal B-mode grayscale and color pelvic ultrasound. FINDINGS: Normal anteverted uterus measures 8.5 x 3.8 x 5.9 cm. The endometrial complex measures 5.0 mm thickness. No discrete uterine or endometrial abnormalities are appreciated. Right ovary measures 2.5 x 1.9 x 1.7 cm and includes 2 follicles measuring 2 mm and 3 mm each. Left ovary measures 2.6 x 2.0 x 1.9 cm and includes 4 follicles measuring between 2 mm and 3 mm. IMPRESSION: Few subcentimeter follicles identified bilaterally. <Electronically signed by Wade Dillard > 08/12/20 [id number]
[2020-08-12 09:12] LABS: HCG, SERUM QUANTITATIVE < 1.0 MIU/ML
[2020-08-12 12:43] LABS: ESTRADIOL 43.4 PG/ML; LUTEINIZING HORMONE 4.7 mIU/mL; PROGESTERONE 0.53 NG/ML
== END ==
LOC: M RAD 07:31 → M LAB 07:31
PROVIDERS: ATTEND Obstetrics & Gynecology Reproductive Endocrinology
DX: E28.9 Ovarian dysfunction, unspecified (principal)

== ENCOUNTER → 2020-08-19 | Outpatient (CLI) | payer OTHER ==
[2020-08-19 13:33] LABS: HCG, SERUM QUANTITATIVE < 1.0 MIU/ML
[2020-08-19 15:21] LABS: TOTAL 25(OH) VITAMIN D 21.4 NG/ML (30.0-100.0)
[2020-08-19 15:22] LABS: LUTEINIZING HORMONE 5.4 mIU/mL; PROGESTERONE 0.32 NG/ML
[2020-08-19 15:23] LABS: ESTRADIOL 151.9 PG/ML; FOLLICLE STIMULATING HORMONE 4.8 mIU/mL
== END ==
LOC: M PLALAB 10:03
PROVIDERS: ATTEND Obstetrics & Gynecology Reproductive Endocrinology
DX: E28.9 Ovarian dysfunction, unspecified (principal)

== ENCOUNTER → 2020-08-19 | Outpatient (CLI) | payer OTHER ==
--- NOTE | 2020-08-19 10:31 | REP ---
INDICATION: INFERTILITY - STAT. COMPARISON: Comparison study August 12, 2020.. TECHNIQUE: Transvaginal pelvic sonography. Ovarian follicle study. FINDINGS: Uterine dimensions are 8.9 x 3.8 x 5.2 cm. The uterus is anteverted. Endometrial stripe is 0.7 cm thick and trilaminar in appearance. A anterior lower uterine segment scar is visible. No uterine mass lesion is seen. No free fluid is noted. Overall dimensions of the right ovary today are 2.9 x 2.4 x 2.4 cm. There is a 1.7 x 1.5 cm follicle in the right ovary. No other right ovarian follicles are visible. The overall dimensions of the left ovary today are 3.3 x 2.3 x 2.9 cm. There is a follicle cyst in the left ovary 2.2 x 1.7 cm in diameter. No other left ovarian follicles are visible. IMPRESSION: No morphologic abnormality seen. Ovarian follicle study as above. <Electronically signed by Jose Antonio Cooley > 08/19/20 [id number]
== END ==
LOC: M WHC 09:41
PROVIDERS: ATTEND Obstetrics & Gynecology Reproductive Endocrinology
DX: N97.9 Female infertility, unspecified (principal)

== ENCOUNTER → 2020-08-30 | Outpatient (CLI) | payer OTHER ==
[2020-08-30 13:02] LABS: ESTRADIOL 105.4 PG/ML; PROGESTERONE 45.75 NG/ML
== END ==
LOC: M WUC 09:43
PROVIDERS: ATTEND Obstetrics & Gynecology Reproductive Endocrinology
DX: E28.9 Ovarian dysfunction, unspecified (principal)

== ENCOUNTER → 2020-09-04 | Outpatient (CLI) | payer OTHER ==
[2020-09-04 09:44] LABS: PROGESTERONE 54.27 NG/ML
== END ==
LOC: M LAB 08:17
PROVIDERS: ATTEND Obstetrics & Gynecology Reproductive Endocrinology
DX: Z32.00 Encounter for pregnancy test, result unknown (principal)

== ENCOUNTER → 2020-09-06 | Outpatient (CLI) | payer OTHER ==
[2020-09-06 10:30] LABS: PROGESTERONE 53.3 NG/ML; THYROID STIMULATING HORMONE 2.3 uIU/ML (0.358-3.740)
== END ==
LOC: M LAB 08:45
PROVIDERS: ATTEND Obstetrics & Gynecology Reproductive Endocrinology
DX: Z32.01 Encounter for pregnancy test, result positive (principal)

== ENCOUNTER → 2020-09-13 | Outpatient (CLI) | payer OTHER ==
--- NOTE | 2020-09-13 10:00 | REP ---
INDICATION: SUPRVSN OF PREG W HISTORY OF INFERTILITY, UNSP TRIMESTER. COMPARISON: None. TECHNIQUE: Transvaginal sonography. FINDINGS: On transvaginal cysts sonographic images, there is a intra endometrial gestational sac. Mean sac size diameter is 9.0 mm. This corresponds with a 5 week 5 day gestational age estimate. A yolk sac is seen. No embryonic pole is observed. No focal uterine mass is seen. No free fluid is noted. The left ovary is not observed. No left adnexal mass or cyst is seen. The right ovary is normal measuring 2.4 x 2.0 x 2.3 cm. IMPRESSION: Gestational sac in the uterine endometrium at 5 weeks 5 days size. There is a yolk sac visible but no embryonic pole. Clinical and possibly sonographic follow-up is advised. <Electronically signed by Jose Antonio Cooley > 09/13/20 [id number]
[2020-09-13 11:18] LABS: ESTRADIOL 206.2 PG/ML; PROGESTERONE 40.65 NG/ML
== END ==
LOC: M LAB 09:14 → M RAD 09:14
PROVIDERS: ATTEND Obstetrics & Gynecology Reproductive Endocrinology
DX: O09.00 Supervision of pregnancy with history of infertility, unspecified trimester (principal); Z3A.01 Less than 8 weeks gestation of pregnancy

== ENCOUNTER → 2020-09-20 | Outpatient (CLI) | payer OTHER ==
[2020-09-20 12:41] LABS: ESTRADIOL 279.8 PG/ML; PROGESTERONE 34.14 NG/ML
== END ==
LOC: M PLALAB 09:37
PROVIDERS: ATTEND Obstetrics & Gynecology Reproductive Endocrinology
DX: O09.00 Supervision of pregnancy with history of infertility, unspecified trimester (principal); Z3A.00 Weeks of gestation of pregnancy not specified

== ENCOUNTER → 2020-09-20 | Outpatient (CLI) | payer OTHER ==
--- NOTE | 2020-09-20 10:23 | REP ---
INDICATION: O09.00 WITH HX INFERTILITY. COMPARISON: None. TECHNIQUE: Transabdominal scanning is performed. FINDINGS: Scanning through the urine filled bladder and the uterus demonstrate an intrauterine gestation. The crown-rump length of the embryonic pole is 5 mm. This corresponds with a 6 week 2 day gestational age estimate. heart rate is recorded at 115 beats per minute. By mean sac size diameter of 1.9 cm, this corresponds with a 6 week 2 day gestation as well. A yolk sac is visualized. There are 2 small ovarian cysts in each ovary. No free fluid is noted. No complication is seen. IMPRESSION: Viable single intrauterine gestation at 6 weeks 2 days by today's composite sonographic criteria. ELISA by today's sonography May 14, 2021. No complication identified. <Electronically signed by Jose Antonio Cooley > 09/20/20 [id number]
== END ==
LOC: M WHC 09:08
PROVIDERS: ATTEND Obstetrics & Gynecology Reproductive Endocrinology
DX: O09.01 Supervision of pregnancy with history of infertility, first trimester (principal); O34.81 Maternal care for other abnormalities of pelvic organs, first trimester; Z3A.01 Less than 8 weeks gestation of pregnancy

== ENCOUNTER → 2020-10-04 | Outpatient (CLI) | payer OTHER ==
--- NOTE | 2020-10-04 10:27 | REP ---
INDICATION: Z32.01 W/HX OF INFERTILITY COMPARISON: 09/20/2020 TECHNIQUE: Transabdominal 1st trimester obstetrical ultrasound with color Doppler evaluation. FINDINGS: Single live early intrauterine is appreciated. Gestational sac with yolk sac and pole identified. [place]-rump length of 18 mm corresponds to 8 weeks 2 days gestational age with estimated date of delivery 05/14/2021. heart rate equals 170 beats per minute. No gross abnormalities are identified. IMPRESSION: Single live early intrauterine at 8 weeks 2 days gestational age. Complete anatomical assessment should be performed and 19-20 weeks. <Electronically signed by Wade Dillard > 10/04/20 [id number]
== END ==
LOC: M WHC 09:27
PROVIDERS: ATTEND Obstetrics & Gynecology Reproductive Endocrinology
DX: Z32.01 Encounter for pregnancy test, result positive (principal)

== ENCOUNTER → 2020-10-04 | Outpatient (CLI) | payer OTHER ==
[2020-10-04 14:23] LABS: ESTRADIOL 446.8 PG/ML; PROGESTERONE 35.36 NG/ML
== END ==
LOC: M PLALAB 09:55
PROVIDERS: ATTEND Obstetrics & Gynecology Reproductive Endocrinology
DX: Z32.01 Encounter for pregnancy test, result positive (principal)

== ENCOUNTER → 2020-10-28 | Outpatient (REF) | payer OTHER ==
[2020-10-28 12:30] LABS: HEMOGLOBIN 14.1 g/dl (12.0-15.5); MEAN CORPUSCULAR HEMOGLOBIN 30.4 pg (27.0-33.0); MEAN CORPUSCULAR HGB CONC 33.6 g/dl (32.0-36.5); MEAN CORPUSCULAR VOLUME 90.5 fl (80.0-96.0); PLATELET COUNT, AUTOMATED 276 10^3/uL (150-450); RED BLOOD COUNT 4.64 10^6/uL (4.00-5.40); WHITE BLOOD COUNT 6.5 10^3/uL (4.0-10.0)
[2020-10-28 13:43] LABS: HEPATITIS C VIRUS ABY INDEX < 0.0 INDEX (<0.8); HIV 1&2 SCREEN CENTAUR NEGATIVE (NEGATIVE)
[2020-10-28 14:28] LABS: CHLAMYDIA DNA AMPLIFICATION NEGATIVE (NEGATIVE); GC DNA AMPLIFICATION NEGATIVE (NEGATIVE)
== END ==
LOC: M PLALAB 09:38
PROVIDERS: ATTEND Specialist
DX: Z34.81 Encounter for supervision of other normal pregnancy, first trimester (principal); Z36.89 Encounter for other specified antenatal screening

== ENCOUNTER → 2020-12-12 | Outpatient (CLI) | payer OTHER ==
--- NOTE | 2020-12-12 16:09 | REP ---
INDICATION: ANATOMY COMPARISON: 10/04/2020 TECHNIQUE: Transabdominal obstetrical ultrasound with color Doppler evaluation. FINDINGS: Examination demonstrates a single live intrauterine in breech presentation. motion is identified by technologist. Placenta is noted anterior and grade 1 without evidence for placenta previa or abruption. Amniotic fluid volume is normal. Cervix measures 3.8 cm in length and appears closed.. Gestational age by LMP and 1st U/S 18 weeks 5 days with ELISA 05/10/2021. Gestational age by current measurements 18 weeks 4 days with ELISA 05/11/2021. FHR equals 142 beats per minute. Estimated weight 237 grams (27thpercentile). Anatomical assessment demonstrates normal structures including cranium, choroid plexus, cavum, cerebellum/posterior fossa, facial features, lungs, four-chamber heart/ventricular outflow tracts, diaphragm, stomach, cord insertion/three-vessel cord, kidneys/bladder, and extremities. IMPRESSION: 1. Single live intrauterine in breech presentation demonstrating appropriate estimated weight. 2. Limited evaluation of the spine due to positioning. Remainder of the anatomical assessment is complete and normal. <Electronically signed by Wade Dillard > 12/12/20 [id number]
== END ==
LOC: M WHC 08:09
PROVIDERS: ATTEND Specialist
DX: Z36.89 Encounter for other specified antenatal screening (principal); Z3A.18 18 weeks gestation of pregnancy

== ENCOUNTER → 2021-01-10 | Outpatient (CLI) | payer OTHER ==
--- NOTE | 2021-01-12 05:06 | REP ---
INDICATION: F/U ANATOMY COMPARISON: 12/12/2020 TECHNIQUE: Transabdominal obstetrical ultrasound with color Doppler evaluation. FINDINGS: Examination demonstrates a single live intrauterine in breech presentation. motion is identified by technologist. Placenta is noted anterior and grade 1 without evidence for placenta previa or abruption. Amniotic fluid volume is normal. Cervix measures 3.6 cm in length and appears closed.. Selected gestational age: 22 weeks 6 days with ELISA 05/10/2021. Gestational age by current measurements 22 weeks 6 days with ELISA 05/10/2021. FHR equals 135 beats per minute. Estimated weight 561 grams (52ndpercentile). Anatomical assessment demonstrates normal structures including spine. IMPRESSION: Single live intrauterine in breech presentation demonstrating appropriate interval growth. In conjunction with prior examination anatomical assessment is complete and normal. <Electronically signed by aWde Dillard > 01/12/21 [id number]
== END ==
LOC: M WHC 12:39
PROVIDERS: ATTEND Specialist
DX: Z34.82 Encounter for supervision of other normal pregnancy, second trimester (principal); Z3A.22 22 weeks gestation of pregnancy

== ENCOUNTER → 2021-02-10 | Outpatient (CLI) | payer OTHER ==
[2021-02-10 13:26] LABS: HEMATOCRIT 38.4 % (36.0-47.0); HEMOGLOBIN 12.5 g/dl (12.0-15.5); MEAN CORPUSCULAR HEMOGLOBIN 30.6 pg (27.0-33.0); MEAN CORPUSCULAR HGB CONC 32.6 g/dl (32.0-36.5); MEAN CORPUSCULAR VOLUME 94.1 fl (80.0-96.0); PLATELET COUNT, AUTOMATED 274 10^3/uL (150-450); RED BLOOD COUNT 4.08 10^6/uL (4.00-5.40); WHITE BLOOD COUNT 8.9 10^3/uL (4.0-10.0)
== END ==
LOC: M PLALAB 10:54
PROVIDERS: ATTEND Specialist
DX: Z34.82 Encounter for supervision of other normal pregnancy, second trimester (principal); Z3A.00 Weeks of gestation of pregnancy not specified

== ENCOUNTER → 2021-02-17 | Outpatient (CLI) | payer OTHER | LOC: M LAB 08:32 | PROVIDERS: ATTEND Specialist | DX: Z34.82 Encounter for supervision of other normal pregnancy, second trimester (principal); Z3A.00 Weeks of gestation of pregnancy not specified ==

== ENCOUNTER → 2021-04-16 | Outpatient (REF) | payer OTHER | LOC: M SFHCWAGY 12:50 | PROVIDERS: ATTEND Specialist | DX: Z34.83 Encounter for supervision of other normal pregnancy, third trimester (principal) ==

== ENCOUNTER → 2021-05-03 | Outpatient (CLI) | payer OTHER ==
[~2021-05-03] MED LIST changes: +PRENTAB53 PO
== END ==
LOC: M LABSMTC 09:08
PROVIDERS: ATTEND Anesthesiology
DX: Z20.822 Contact with and (suspected) exposure to COVID-19 (principal)

== ENCOUNTER → 2022-08-31 | Outpatient (CLI) | payer OTHER ==
[~2022-08-31] MED LIST changes: +COLA100C5 PO; +PERCOCET PO
[2022-08-31 13:41] LABS: ESTRADIOL 30.5 PG/ML; LUTEINIZING HORMONE 12.3 mIU/ML
[2022-08-31 13:42] LABS: PROGESTERONE 3.23 NG/ML
== END ==
LOC: M PLALAB 09:56
PROVIDERS: ATTEND Obstetrics & Gynecology Reproductive Endocrinology
DX: Z31.83 Encounter for assisted reproductive fertility procedure cycle (principal)

== ENCOUNTER → 2022-08-31 | Outpatient (CLI) | payer OTHER | LOC: M WHC 09:00 | PROVIDERS: ATTEND Obstetrics & Gynecology Reproductive Endocrinology | DX: Z31.83 Encounter for assisted reproductive fertility procedure cycle (principal); D25.1 Intramural leiomyoma of uterus; N83.01 Follicular cyst of right ovary; N83.02 Follicular cyst of left ovary ==

== ENCOUNTER → 2022-09-02 | Outpatient (CLI) | payer OTHER | LOC: M WHC 07:55 | PROVIDERS: ATTEND Obstetrics & Gynecology Reproductive Endocrinology | DX: Z31.83 Encounter for assisted reproductive fertility procedure cycle (principal); N83.01 Follicular cyst of right ovary; N83.02 Follicular cyst of left ovary ==

== ENCOUNTER → 2022-09-02 | Outpatient (CLI) | payer OTHER ==
[2022-09-02 10:48] LABS: LUTEINIZING HORMONE 12.8 mIU/ML; PROGESTERONE 12.17 NG/ML
[2022-09-02 10:49] LABS: ESTRADIOL 25.6 PG/ML
== END ==
LOC: M PLALAB 08:33
PROVIDERS: ATTEND Obstetrics & Gynecology Reproductive Endocrinology
DX: Z31.83 Encounter for assisted reproductive fertility procedure cycle (principal)

== ENCOUNTER → 2022-09-18 | Outpatient (CLI) | payer OTHER | LOC: M WHC 09:20 | PROVIDERS: ATTEND Obstetrics & Gynecology Reproductive Endocrinology | DX: Z31.83 Encounter for assisted reproductive fertility procedure cycle (principal) ==

== ENCOUNTER → 2022-09-18 | Outpatient (CLI) | payer OTHER ==
[2022-09-18 14:02] LABS: HCG, SERUM QUANTITATIVE < 2.6 MIU/ML (<4.2)
[2022-09-18 14:03] LABS: FOLLICLE STIMULATING HORMONE 13.3 mIU/ML; THYROID STIMULATING HORMONE 1.052 uIU/ML (0.55-4.78)
[2022-09-18 14:04] LABS: LUTEINIZING HORMONE 4.5 mIU/ML
[2022-09-18 14:05] LABS: ESTRADIOL 70.4 PG/ML
[2022-09-18 14:07] LABS: PROGESTERONE 0.68 NG/ML
== END ==
LOC: M PLALAB 10:10
PROVIDERS: ATTEND Obstetrics & Gynecology Reproductive Endocrinology
DX: Z31.83 Encounter for assisted reproductive fertility procedure cycle (principal)

== ENCOUNTER → 2022-09-21 | Outpatient (CLI) | payer OTHER | LOC: M WHC 08:30 | PROVIDERS: ATTEND Obstetrics & Gynecology Reproductive Endocrinology | DX: Z31.83 Encounter for assisted reproductive fertility procedure cycle (principal) ==

== ENCOUNTER → 2022-09-25 | Outpatient (CLI) | payer OTHER ==
[2022-09-25 09:37] LABS: ESTRADIOL 157.7 PG/ML; LUTEINIZING HORMONE 10.8 mIU/ML
[2022-09-25 09:38] LABS: PROGESTERONE 0.63 NG/ML
== END ==
LOC: M RAD 08:11
PROVIDERS: ATTEND Obstetrics & Gynecology Reproductive Endocrinology
DX: Z31.49 Encounter for other procreative investigation and testing (principal)

== ENCOUNTER → 2022-10-07 | Outpatient (CLI) | payer OTHER ==
[2022-10-07 11:08] LABS: ESTRADIOL 130.9 PG/ML
[2022-10-07 11:10] LABS: PROGESTERONE 54.72 NG/ML
== END ==
LOC: M LAB 09:18
PROVIDERS: ATTEND Obstetrics & Gynecology Reproductive Endocrinology
DX: Z31.49 Encounter for other procreative investigation and testing (principal)

== ENCOUNTER → 2022-10-12 | Outpatient (CLI) | payer OTHER ==
[2022-10-12 10:35] LABS: HCG, SERUM QUANTITATIVE 184.7 MIU/ML (<4.2)
[2022-10-12 10:39] LABS: PROGESTERONE 50.13 NG/ML
== END ==
LOC: M LAB 09:35
PROVIDERS: ATTEND Obstetrics & Gynecology Reproductive Endocrinology
DX: Z32.00 Encounter for pregnancy test, result unknown (principal)

== ENCOUNTER → 2022-10-14 | Outpatient (CLI) | payer OTHER ==
[2022-10-14 10:46] LABS: HCG, SERUM QUANTITATIVE 548.3 MIU/ML (<4.2)
[2022-10-14 10:50] LABS: ESTRADIOL 144.9 PG/ML; THYROID STIMULATING HORMONE 1.305 uIU/ML (0.55-4.78)
[2022-10-14 10:51] LABS: PROGESTERONE 40.07 NG/ML
== END ==
LOC: M LAB 09:25
PROVIDERS: ATTEND Obstetrics & Gynecology Reproductive Endocrinology
DX: Z32.01 Encounter for pregnancy test, result positive (principal)

== ENCOUNTER → 2022-10-23 | Outpatient (CLI) | payer OTHER ==
[2022-10-23 14:52] LABS: ESTRADIOL 230.9 PG/ML
[2022-10-23 14:53] LABS: PROGESTERONE 31.92 NG/ML
== END ==
LOC: M PLALAB 09:41
PROVIDERS: ATTEND Obstetrics & Gynecology Reproductive Endocrinology
DX: O09.00 Supervision of pregnancy with history of infertility, unspecified trimester (principal); Z3A.00 Weeks of gestation of pregnancy not specified

== ENCOUNTER → 2022-10-23 | Outpatient (CLI) | payer OTHER | LOC: M WHC 09:40 | PROVIDERS: ATTEND Obstetrics & Gynecology Reproductive Endocrinology | DX: O09.00 Supervision of pregnancy with history of infertility, unspecified trimester (principal); Z3A.01 Less than 8 weeks gestation of pregnancy ==

== ENCOUNTER → 2022-10-30 | Outpatient (CLI) | payer OTHER ==
[2022-10-30 13:38] LABS: PROGESTERONE 36.87 NG/ML
[2022-10-30 13:39] LABS: ESTRADIOL 304.4 PG/ML
[2022-10-30 13:51] LABS: HCG, SERUM QUANTITATIVE 76749.4 MIU/ML (<4.2)
== END ==
LOC: M PLALAB 10:17
PROVIDERS: ATTEND Obstetrics & Gynecology Reproductive Endocrinology
DX: O09.00 Supervision of pregnancy with history of infertility, unspecified trimester (principal)

== ENCOUNTER → 2022-10-30 | Outpatient (CLI) | payer OTHER | LOC: M WHC 09:21 | PROVIDERS: ATTEND Obstetrics & Gynecology Reproductive Endocrinology | DX: O09.00 Supervision of pregnancy with history of infertility, unspecified trimester (principal) ==

== ENCOUNTER → 2022-11-25 | Outpatient (CLI) | payer OTHER ==
[2022-11-25 14:05] LABS: HEMATOCRIT 42.1 % (36.0-47.0); HEMOGLOBIN 13.9 g/dl (12.0-15.5); MEAN CORPUSCULAR HEMOGLOBIN 30.3 pg (27.0-33.0); MEAN CORPUSCULAR VOLUME 91.9 fl (80.0-96.0); PLATELET COUNT, AUTOMATED 291 10^3/uL (150-450); RED BLOOD COUNT 4.58 10^6/uL (4.00-5.40); WHITE BLOOD COUNT 6.9 10^3/uL (4.0-10.0)
[2022-11-25 14:32] LABS: HIV 1&2 SCREEN CENTAUR NEGATIVE (NEGATIVE)
[2022-11-25 15:36] LABS: GC DNA AMPLIFICATION NEGATIVE (NEGATIVE)
== END ==
LOC: M PLALAB 09:17
PROVIDERS: ATTEND Specialist
DX: Z36.9 Encounter for antenatal screening, unspecified (principal)

== ENCOUNTER → 2022-12-23 | Outpatient (REF) | payer OTHER | LOC: M SFHCWAGY 18:08 | PROVIDERS: ATTEND Advanced Practice Midwife | DX: Z34.82 Encounter for supervision of other normal pregnancy, second trimester (principal) ==

== ENCOUNTER → 2023-02-08 | Outpatient (CLI) | payer OTHER | LOC: M WHC 10:16 | PROVIDERS: ATTEND Advanced Practice Midwife | DX: Z34.82 Encounter for supervision of other normal pregnancy, second trimester (principal); Z3A.21 21 weeks gestation of pregnancy ==

== ENCOUNTER → 2023-03-23 | Outpatient (CLI) | payer OTHER ==
[2023-03-23 13:58] LABS: HEMATOCRIT 37.6 % (36.0-47.0); HEMOGLOBIN 12.1 g/dl (12.0-15.5); MEAN CORPUSCULAR HEMOGLOBIN 30.7 pg (27.0-33.0); MEAN CORPUSCULAR HGB CONC 32.2 g/dl (32.0-36.5); MEAN CORPUSCULAR VOLUME 95.4 fl (80.0-96.0); PLATELET COUNT, AUTOMATED 284 10^3/uL (150-450); RED BLOOD COUNT 3.94 10^6/uL (4.00-5.40); WHITE BLOOD COUNT 7.9 10^3/uL (4.0-10.0)
== END ==
LOC: M PLALAB 08:27
PROVIDERS: ATTEND Specialist
DX: Z34.82 Encounter for supervision of other normal pregnancy, second trimester (principal); N39.0 Urinary tract infection, site not specified

== ENCOUNTER → 2023-04-22 | Outpatient (CLI) | payer OTHER | LOC: M WHC 14:08 | PROVIDERS: ATTEND Advanced Practice Midwife | DX: O09.513 Supervision of elderly primigravida, third trimester (principal) ==

== ENCOUNTER → 2023-05-17 | Outpatient (REF) | payer OTHER | LOC: M SFHCWAGY 15:21 | PROVIDERS: ATTEND Specialist | DX: Z34.83 Encounter for supervision of other normal pregnancy, third trimester (principal) ==

== ENCOUNTER → 2025-02-01 | Outpatient (REF) | payer OTHER, MEDICAID ==
[~2025-02-01] MED LIST changes: +LORA-1164 PO; -LORA-622 PO
== END ==
LOC: M LAB REF 12:25
PROVIDERS: ATTEND Student in an Organized Health Care Education/Training Program
DX: R30.0 Dysuria (principal)

== ENCOUNTER → 2025-06-07 | Outpatient (REF) | payer OTHER | LOC: M PLALAB 09:39 | PROVIDERS: ATTEND Specialist | DX: Z12.4 Encounter for screening for malignant neoplasm of cervix (principal); R35.0 Frequency of micturition | CPT/HCPCS: 87088; 87186; G0123 ==

== ENCOUNTER → 2025-06-13 | Outpatient (CLI) | payer OTHER | LOC: M WHC 10:51 | PROVIDERS: ATTEND Specialist | DX: R92.2 Inconclusive mammogram (principal); R92.30 Dense breasts, unspecified ==

== ENCOUNTER → 2025-07-13 | Outpatient (REF) | payer OTHER | LOC: M LAB REF 11:37 | PROVIDERS: ATTEND Physician Assistant | DX: R30.0 Dysuria (principal) ==